=== PATIENT | female | born 1995 | race African-American/Black ===

== ENCOUNTER 2023-09-07 05:13 | Emergency (ER) | payer MEDICAID ==
[~2023-09-07] VITALS: Ht 162.6 cm; Wt 59.0 kg
[2023-09-07 05:15] VITALS: O2SAT 100
[2023-09-07] MEDS ORDERED: PANTOPRAZOLE 80 MG in SODIUM CHLORIDE 0.9% 100 ML IV SCH (05:45)
[2023-09-07 06:14] LABS: BASOPHILS % 0.4 % (0.0-2.0); DIFFERENTIAL COMMENT 0; EOSINOPHILS % 0.3 % (0.0-5.0); HEMATOCRIT. 35.1 % (36.0-48.0); HEMOGLOBIN. 11.3 g/dL (12.0-16.0); LYMPHOCYTES % 20.4 % (20.0-50.0); MEAN CORPUSCULAR HEMOGLOBIN 25.5 pg (28.0-32.0); MEAN CORPUSCULAR HGB CONC 32.3 g/dL (31.0-37.0); MEAN CORPUSCULAR VOLUME 78.9 fL (81.0-99.0); MEAN PLATELET VOLUME 8.6 fl (7.4-10.4); MONOCYTES % 12.2 % (2.0-8.0); NEUTROPHILS % 66.7 % (40.0-76.0); PLATELET 283 x1000/uL (130-400); RED BLOOD CELL COUNT 4.44 mill/uL (4.2-5.4); RED CELL DISTRIBUTION WIDTH 16.5 % (11.6-14.6); WHITE BLOOD COUNT 8.1 x1000/uL (4.5-11.0)
[2023-09-07] MEDS: METOCLOPRAMIDE HCL 10MG/2ML VIAL IV ONE (06:16)
[2023-09-07] MEDS: PANTOPRAZOLE SODIUM 40 MG/VIAL IV ONE (06:16)
[2023-09-07 06:17] LABS: CHLORIDE 103 mEq/L (98-107); POTASSIUM 3.3 mEq/L (3.5-5.1); SODIUM 137 mEq/L (136-145)
[2023-09-07 06:18] LABS: CARBON DIOXIDE 26 mEq/L (21-32)
[2023-09-07 06:19] LABS: CALCIUM 9.9 mg/dL (8.7-10.4)
[2023-09-07 06:23] LABS: CREATININE 0.8 mg/dL (0.6-1.0); GLUCOSE 87 mg/dL (70-105)
[2023-09-07 06:24] LABS: UREA NITROGEN BLOOD 9 mg/dL (9-23)
[2023-09-07 06:25] LABS: ALANINE AMINOTRANSFERASE 7 IU/L (10-49); ALBUMIN 4.6 g/dL (3.2-4.8); ASPARTATE AMINOTRANSFERASE 20 IU/L (<34)
[2023-09-07 06:26] LABS: BILIRUBIN TOTAL 0.6 mg/dL (0.1-1.0); PROTEIN TOTAL 8.4 g/dL (6.0-8.3)
[2023-09-07 06:27] LABS: HCG SCREEN NEGATIVE
[2023-09-07 06:30] LABS: TROPONIN I HIGH SENSITIVITY < 4 ng/L (3.0-34)
[2023-09-07] MEDS: LACTATED RINGERS 1,000 ML IV SCH (06:52)
[2023-09-07] MEDS: PANTOPRAZOLE 80 MG in SODIUM CHLORIDE 0.9% 100 ML IV SCH (07:57)
[2023-09-07] MEDS ORDERED: LACTATED RINGERS 1,000 ML IV SCH (11:15)
[2023-09-07] MEDS: METRONIDAZOLE 500 MG PREMIX 100 ML IV ONE (11:37)
[2023-09-07] MEDS: LEVOFLOXACIN 750MG PREMIX 150 ML IV ONE (12:26)
[2023-09-07] MEDS ORDERED: IOHEXOL-350 100 ML BOTTLE ONE (13:15)
[2023-09-07 13:33] VITALS: BP 166/68; PULSE 76; RESP 13; TEMP 98.1
== END 2023-09-07 13:32 | disposition short-term general hospital (02) ==
LOC: ER 05:13 → EDBEDREQTM 11:35 → EDBEDREQ 11:35 → ER 13:32 → CANBEDREQ 13:32
DX: K62.5 Hemorrhage of anus and rectum (principal); S09.90XA Unspecified injury of head, initial encounter; R55 Syncope and collapse; R06.02 Shortness of breath; F31.9 Bipolar disorder, unspecified; X58.XXXA Exposure to other specified factors, initial encounter; Y93.89 Activity, other specified; Y92.89 Other specified places as the place of occurrence of the external cause; Y99.8 Other external cause status
CPT/HCPCS: 99291; 74174; 96365; 96367; 70450; 96375; 71045; 96361; 80053; 84703; 83690; 85025; 86850; 86900; 86901; 84484; 36415; 93005; Q9967; J2765; J3490; C9113; J1956; J7050